=== PATIENT | female | born 1960 | race Caucasian/White ===

== ENCOUNTER 2018-04-15 08:54 | Emergency (ER) | payer MEDICAID | END 2018-04-15 09:42 | disposition home or self-care (01) | LOC: FTE 08:54 | DX: H92.01 Otalgia, right ear (principal) | CPT/HCPCS: 99283; Z7502 ==

== ENCOUNTER 2018-05-06 12:21 | Emergency (ER) | payer MEDICAID ==
[2018-05-06] MEDS: KETOROLAC 15 MG INJ IM (14:30)
== END 2018-05-06 16:20 | disposition home or self-care (01) ==
LOC: FTE 12:21
DX: H11.31 Conjunctival hemorrhage, right eye (principal); H92.01 Otalgia, right ear
CPT/HCPCS: 96372; 99284-25